=== PATIENT | female | born 1995 | race African-American/Black ===

== ENCOUNTER 2020-08-24 11:46 | Emergency (ER) | payer MEDICAID ==
[~2020-08-24] VITALS: Ht 167.6 cm; Wt 57.0 kg
[2020-08-24] MEDS ORDERED: IPRATROPIUM BROMIDE (0.02%) 0.5MG/2.5ML NEB HHN STA (12:19)
[2020-08-24] MEDS ORDERED: METHYLPREDNISOLONE SOD SUCC 125 MG/2 ML VIAL IV STA (12:19)
[2020-08-24] MEDS ORDERED: ALBUTEROL (0.083%) 2.5MG/3ML NEB HHN STA (12:19)
[2020-08-24] MEDS ORDERED: P50 PO (12:48)
[2020-08-24] MEDS ORDERED: ALBU18HF2 IH (12:48)
[2020-08-24 14:30] VITALS: BP 135/83
== END 2020-08-24 14:53 | disposition home or self-care (01) ==
LOC: ER 11:46
DX: J45.901 Unspecified asthma with (acute) exacerbation (principal); Z79.899 Other long term (current) drug therapy
CPT/HCPCS: 93005; 94644; 96374; 99285; J2930; Z7610